=== PATIENT | male | born 1960 | race Caucasian/White ===

== ENCOUNTER 2017-10-11 15:32 | Emergency (ER) | payer BC ==
--- NOTE | 2017-10-11 15:59 | EDM.PDOC ---
ED HPI GENERAL MEDICAL PROBLEM - General Chief Complaint: Lower Extremity Injury/Pain Stated Complaint: LT LEG IS SWOLLEN Time Seen by Provider: 10/11/17 15:34 Source of Information: Reports: Patient History Limitations: Reports: No Limitations - History of Present Illness INITIAL COMMENTS - FREE TEXT/NARRATIVE: HISTORY AND PHYSICAL: History of present illness: Patient is a 57-year-old male who presents to the emergency room today with complaints of left lower extremity swelling and numbness/tingling. He states over the last 2 days he has had swelling to the left lower extremity does have intermittent numbness and tingling to his distal toes. He denies any recent travel or periods of inactivity. Denies any previous history of DVT or PE. Denies any fever, chills, chest pain, shortness of breath or cough. Denies any GI or symptoms. Denies any recent injury, trauma or falls. Review of systems: As per history of present illness and below otherwise all systems reviewed and negative. Past medical history: As per history of present illness and as reviewed below otherwise noncontributory. Surgical history: As per history of present illness and as reviewed below otherwise noncontributory. Social history: No reported history of drug or alcohol abuse. Family history: As per history of present illness and as reviewed below otherwise noncontributory. Physical exam: General: Developed and well-nourished 57-year-old male. Alert and oriented. Nontoxic appearing and in no acute distress. HEENT: Atraumatic, normocephalic, pupils equal and reactive bilaterally, negative for conjunctival pallor or scleral icterus, mucous membranes moist, throat clear, neck supple, nontender, trachea midline. No drooling or trismus noted. No meningeal signs Lungs: Clear to auscultation, breath sounds equal bilaterally, chest nontender. Heart: S1S2, regular rate and rhythm without overt murmur Abdomen: Soft, nondistended, nontender. Negative for masses or hepatosplenomegaly. Negative for costovertebral tenderness. Pelvis: Stable nontender. Genitourinary: Deferred. Rectal: Deferred. Skin: Intact, warm, dry. No erythema noted. No lesions or rashes noted. Extremities: Atraumatic, moves all extremities per self without difficulty or deficits, negative for cords or calf pain. + 1 pitting edema to the left ankle/ foot. Strong pedal pulses. Neurovascular unremarkable. Neuro: Awake, alert, oriented. Cranial nerves II through XII unremarkable. Cerebellum unremarkable. Motor and sensory unremarkable throughout. Exam nonfocal. Notes: Patient states he does have chronic back pain which does intermittently have him numbness and tingling to his distal extremities. She has never had unilateral numbness and tingling. He is agreeable to routine lab work and an ultrasound at this time. AST and ALT are elevated at this time. He does state he uses alcohol frequently to help with chronic pain. He is agreeable to following up with his primary care provider for further evaluation and management of this. He sees Dr. Torres at [facility]. No evidence of DVT in the left lower extremity. Diagnostics: CBC, CMP, troponin, chest x-ray, venous Doppler Therapeutics: [] Impression: Lower Extremity Edema, Left Plan: 1. Please limit your sodium intake (added salt, processed foods, etc...). 2. Ultrasound was normal, no evidence of DVT. Labs were normal with the exception of AST/ALT (liver enzymes); please follow up with your primary care provider for lab re-evaluation and further management of your lower extremity swelling. Return to the ED as needed as discussed. Definitive disposition and diagnosis as appropriate pending reevaluation and review of above. - Related Data Allergies Allergy/AdvReac Type Severity Reaction Status Date / Time No Known Allergies Allergy Verified 10/11/17 15:43 Home Meds: Home Meds Losartan/Hydrochlorothiazide [Losartan-HCTZ 50-12.5 MG] 1 each PO DAILY [History] Olmesartan [Benicar] 20 mg PO DAILY 10/11/17 [History] amLODIPine Besylate [Amlodipine Besylate] 10 mg PO DAILY 10/11/17 [History] Past Medical History - Past Health History Medical/Surgical History: Denies Medical/Surgical History Cardiovascular History: Reports: Hypertension Musculoskeletal History: Reports: Other (See Below) Other Musculoskeletal History: chronic right leg numbness/pain - Infectious Disease History Infectious Disease History: Reports: Chicken Pox - Past Surgical History Cardiovascular Surgical History: Reports: None Musculoskeletal Surgical History: Reports: Other (See Below) Social & Family History - Family History Family Medical History: Noncontributory HEENT: Reports: Glaucoma, Macular Degeneration Other HEENT Family History: mother Cardiac: Reports: High Cholesterol, Hypertension, [place] GI: Reports: Other (See Below) Other GI Family History: chrons Musculoskeletal: Reports: Back pain, Chronic Oncologic: Reports: Breast - Tobacco Use Smoking Status *Q: Current Every Day Smoker Years of Tobacco use: 40 Packs/Tins Daily: 1 - Recreational Drug Use Recreational Drug Use: No Review of Systems - Review of Systems Review Of Systems: ROS reveals no pertinent complaints other than HPI. ED EXAM, GENERAL - Physical Exam Exam: See Below (See dictation) Course - Vital Signs Last Recorded V/S: Last Vital Signs Temp 98.3 F 10/11/17 15:46 Pulse 108 H 10/11/17 15:46 Resp 18 10/11/17 15:46 BP 179/99 H 10/11/17 15:46 Pulse Ox 95 10/11/17 15:46 - Orders/Labs/Meds Orders: Active Orders 24 hr Category Date Time Status Chest 1V Frontal [CR] Stat Exams 10/11/17 15:59 Ordered Venous Doppler Lwr Ext Lt [US] Stat Exams 10/11/17 16:07 Taken Venous Doppler Lwr Ext Rt [US] Stat Exams 10/11/17 15:54 Stop Req Labs: Laboratory Tests 10/11/17 10/11/17 10/11/17 Range/Units 16:07 16:07 16:07 WBC 5.79 (4.0-11.0) K/uL RBC 4.46 L (4.50-5.90) M/uL Hgb 14.9 (13.0-17.0) g/dL Hct 42.9 (38.0-50.0) % MCV 96.2 (80.0-98.0) fL MCH 33.4 H (27.0-32.0) pg MCHC 34.7 (31.0-37.0) g/dL RDW Std Deviation 52.6 (28.0-62.0) fl RDW Coeff of Dorothy 15 (11.0-15.0) % Plt Count 169 (150-400) K/uL MPV 8.80 (7.40-12.00) fL Neut % (Auto) 70.7 (48.0-80.0) % Lymph % (Auto) 14.0 L (16.0-40.0) % [place] % (Auto) 13.8 (0.0-15.0) % Eos % (Auto) 1.0 (0.0-7.0) % Baso % (Auto) 0.5 (0.0-1.5) % Neut # (Auto) 4.1 (1.4-5.7) K/uL Lymph # (Auto) 0.8 (0.6-2.4) K/uL Schoolcraft # (Auto) 0.8 (0.0-0.8) K/uL Eos # (Auto) 0.1 (0.0-0.7) K/uL Baso # (Auto) 0.0 (0.0-0.1) K/uL Nucleated RBC % 0.0 /100WBC Nucleated RBCs # 0 K/uL Sodium 138 (136-148) mmol/L Potassium 3.8 (3.5-5.1) mmol/L Chloride 98 (98-107) mmol/L Carbon Dioxide 31.1 (21.0-32.0) mmol/L BUN 17 (7.0-18.0) mg/dL Creatinine 1.1 (0.8-1.3) mg/dL Est Cr Clr Drug Dosing 87.49 mL/min Estimated GFR (MDRD) > 60.0 ml/min Glucose 109 H (74-106) mg/dL Calcium 8.9 (8.5-10.1) mg/dL Total Bilirubin 0.3 (0.2-1.0) mg/dL AST 80 H (15-37) IU/L ALT 87 H (14-63) IU/L Alkaline Phosphatase 30 L (46-116) U/L Troponin I < 0.050 (0.000-0.056) ng/mL B-Natriuretic Peptide < 15 (<100) PG/ML Total Protein 7.1 (6.4-8.2) g/dL Albumin 4.1 (3.4-5.0) g/dL Globulin 3.0 (2.0-3.5) g/dL Albumin/Globulin Ratio 1.4 (1.3-2.8) Departure - Departure Time of Disposition: 16:54 Disposition: Home, Self-Care 01 Clinical Impression: Lower extremity edema - Discharge Information Referrals: PCP,None [Primary Care Provider] - Forms: ED Department Discharge Additional Instructions: The following information is given to patients seen in the emergency department who are being discharged to home. This information is to outline your options for follow-up care. We provide all patients seen in our emergency department with a follow-up referral. The need for follow-up, as well as the timing and circumstances, are variable depending upon the specifics of your emergency department visit. If you don't have a primary care physician on staff, we will provide you with a referral. We always advise you to contact your personal physician following an emergency department visit to inform them of the circumstance of the visit and for follow-up with them and/or the need for any referrals to a consulting specialist. The emergency department will also refer you to a specialist when appropriate. This referral assures that you have the opportunity for follow-up care with a specialist. All of these measure are taken in an effort to provide you with optimal care, which includes your follow-up. Under all circumstances we always encourage you to contact your private physician who remains a resource for coordinating your care. When calling for follow-up care, please make the office aware that this follow-up is from your recent emergency room visit. If for any reason you are refused follow-up, please contact the [facility] Emergency Department at and asked to speak to the emergency department charge nurse. [facility] [address] [place], [place] [id number] 1. Please limit your sodium intake (added salt, processed foods, etc...). 2. Ultrasound was normal, no evidence of DVT. Labs were normal with the exception of AST/ALT (liver enzymes); please follow up with your primary care provider for lab re-evaluation and further management of your lower extremity swelling. Return to the ED as needed as discussed. - My Orders Last 24 Hours: My Active Orders 10/11/17 15:54 Venous Doppler Lwr Ext Rt [US] Stat 10/11/17 15:59 Chest 1V Frontal [CR] Stat 10/11/17 16:07 Venous Doppler Lwr Ext Lt [US] Stat - Assessment/Plan Last 24 Hours: My Active Orders 10/11/17 15:54 Venous Doppler Lwr Ext Rt [US] Stat 10/11/17 15:59 Chest 1V Frontal [CR] Stat 10/11/17 16:07 Venous Doppler Lwr Ext Lt [US] Stat
[2017-10-11 16:41] LABS: CHLORIDE,CL 98 mmol/L (98-107); SODIUM,NA 138 mmol/L (136-148)
[2017-10-11 17:17] VITALS: BP 175/96
--- NOTE | 2017-10-12 10:44 | US ---
EXAM DATE: 10/11/17 PATIENT'S AGE: 57 Patient: CARLO MEDINA Facility: [place], [place] Site . Site : 1960 Study: US Extremity [id number]/25/2018 4:37:52 PM Ordering Physician: Doctor Torres Final Report: INDICATION: PAIN, SWELLING LLE LEFT LOWER EXTREMITY VENOUS DUPLEX ULTRASOUND TECHNIQUE: Duplex sonography using grayscale imaging as well as color and spectral Doppler interrogation was performed over the left lower extremity with attention to the deep venous system. FINDINGS: The left common femoral, femoral, deep femoral, popliteal, and posterior tibial veins show normal compressibility, color Doppler flow, and augmentation response. IMPRESSION: No evidence of deep venous thrombosis in the left lower extremity. ELIESER SWANSON MD [employer] Dictated by: Luis Swanson MD @ 10/11/2017 16:45:42 (Electronic Signature) Report Signed by Proxy. SPR[facility]
--- NOTE | 2017-10-12 10:45 | CR ---
EXAM DATE: 10/11/17 PATIENT'S AGE: 57 Patient: CARLO MEDINA Facility: [place], [place] Site . Site : 1960 Study: XRay Chest [id number]/25/2018 4:55:43 PM Ordering Physician: Doctor Torres Final Report: Indication: Tachycardia with left leg swelling Technique: Chest 1 view Comparison: October 30, 2015 Findings/Impression: Cardiovascular and mediastinum: Mild cardiomegaly, stable. Lungs and pleural space: Lungs are clear. No sign of infiltrate or mass. No sign of pleural effusion. No pneumothorax. Bones and soft tissues: No significant findings. Dictated by Eusebia Coronado MD @ Oct 11 2017 5:20PM (Electronic Signature) Report Signed by Proxy. [facility]
== END 2017-10-11 17:14 | disposition home or self-care (01) ==
LOC: MW.ED 15:32
DX: R60.0 Localized edema (principal); M79.662 Pain in left lower leg; I10 Essential (primary) hypertension; Z79.899 Other long term (current) drug therapy
CPT/HCPCS: 36415; 71045; 71045-26; 80053; 83880; 84484; 85025; 93971-26-LT; 93971-LT; 99283; 99284-25

== ENCOUNTER 2017-11-26 14:33 | Emergency (ER) | payer BC ==
--- NOTE | 2017-11-26 15:03 | EDM.PDOC ---
ED HPI GENERAL MEDICAL PROBLEM - General Chief Complaint: Back Pain or Injury Stated Complaint: BACK PAIN Time Seen by Provider: 11/26/17 14:37 Source of Information: Reports: Patient History Limitations: Reports: No Limitations - History of Present Illness INITIAL COMMENTS - FREE TEXT/NARRATIVE: HISTORY AND PHYSICAL: History of present illness: Patient is a 57-year-old male who presents to the emergency room today with complaints of chronic back pain. He states he has had ongoing back pain over the past 20 years. He states over the past 2 years this has required him to take medications and seek medical attention. He has had multiple x-rays, CT's and a MRI which confirms he has herniated discs in L4 and L5 and degenerative disc disease. He is currently waiting to see a neurosurgeon to have lumbar fusion, but has yet to receive a referral from his primary care provider. He does take prescribed and [id number] medications to help alleviate his discomfort which over the past several weeks has not helped. Reports he had fallen 2 weeks ago and believes this has "aggravated my back". He denies any urinary or fecal incontinence. Denies any weakness to his distal extremities. Denies any numbness or tingling to the distal extremities. Review of systems: As per history of present illness and below otherwise all systems reviewed and negative. Past medical history: As per history of present illness and as reviewed below otherwise noncontributory. Surgical history: As per history of present illness and as reviewed below otherwise noncontributory. Social history: No reported history of drug or alcohol abuse. Family history: As per history of present illness and as reviewed below otherwise noncontributory. Physical exam: General: Well altered well-nourished 57-year-old male. Alert and oriented. Nontoxic appearing and in no acute distress. HEENT: Atraumatic, normocephalic, pupils equal and reactive bilaterally, negative for conjunctival pallor or scleral icterus, mucous membranes moist, throat clear, neck supple, nontender, trachea midline. No drooling or trismus noted. No meningeal signs Lungs: Clear to auscultation, breath sounds equal bilaterally, chest nontender. Heart: S1S2, regular rate and rhythm without overt murmur Abdomen: Soft, nondistended, nontender. Negative for masses or hepatosplenomegaly. Negative for costovertebral tenderness. Pelvis: Stable nontender. Genitourinary: Deferred. Rectal: Deferred. Skin: Intact, warm, dry. No lesions or rashes noted. Extremities: Atraumatic, negative for cords or calf pain. Neurovascular unremarkable. C-spine/Back: No pinpoint vertebral tenderness upon palpation. No crepitus, step -offs or obvious deformities. Patient does have tenderness to the lumbar region to the paraspinous muscles. This does not radiate down either glute. Patient is ambulatory into the emergency room and able to walk on his heels and toes. No Urinary or fecal incontinence. Neuro: Awake, alert, oriented. Cranial nerves II through XII unremarkable. Cerebellum unremarkable. Motor and sensory unremarkable throughout. Exam nonfocal. Notes: Patient is tearful while explaining frustration of not having had a referral to the neurosurgeon. He states he is understanding that these pain medications are simply masking the root cause of his discomfort. He does request that we schedule him an appointment with a primary care provider at [facility] , which I will see if nursing staff is able to do so for him, as he states that no one will return his phone calls through Dr Salter's office. I will do a lumbar x-ray just to make sure there are no obvious fractures with the most recent fall. I am limited to what I can prescribe him for further pain management as he does have medications he is currently taking. X-ray shows no acute fractures or dislocations. This information was shared with the patient. Follow-up appointments have been made for the patient. Patient and voice understanding and are agreeable to plan of care. They deny any further questions or concerns at this time. Diagnostics: Lumbar Xray Therapeutics: Dilaudid IM Prescription: Lidoderm Patch PRN (Disp#10) Tramadol PRN (Disp #30) Impression: Back Pain, acute on chronic Plan: 1. Please avoid performing any activities that increase your pain. Gentle heat and/or ice intermittently to the painful area. 2. Please take your medications as directed. No driving while taking these medications as they may cause drowsiness. 3. Follow up with a primary care provider December 01, [address] Barnett (ER follow up) and Dr Franklin December 03, 2017 (for establishing care and Neurology Referral). Return to the ED as needed and as discussed. Definitive disposition and diagnosis as appropriate pending reevaluation and review of above. Lower Back Pain Score (Numeric/FACES): 12 - Related Data Allergies Allergy/AdvReac Type Severity Reaction Status Date / Time No Known Allergies Allergy Verified 11/26/17 15:04 Home Meds: Home Meds Losartan/Hydrochlorothiazide [Losartan-HCTZ 50-12.5 MG] 1 each PO DAILY [History] amLODIPine Besylate [Amlodipine Besylate] 10 mg PO DAILY 10/11/17 [History] Hydrocodone/Acetaminophen [Hydrocodon-Acetaminoph 7.5-325] 1 tab Q6HR PRN [History] Naproxen Sodium 1 tab BID PRN 11/26/17 [History] tiZANidine [Zanaflex] 2 tab Q8HR PRN 11/26/17 [History] Past Medical History - Past Health History Medical/Surgical History: Denies Medical/Surgical History Cardiovascular History: Reports: Hypertension Musculoskeletal History: Reports: Other (See Below) Other Musculoskeletal History: chronic right leg numbness/pain - Infectious Disease History Infectious Disease History: Reports: Chicken Pox - Past Surgical History Cardiovascular Surgical History: Reports: None Musculoskeletal Surgical History: Reports: Other (See Below) Social & Family History - Family History Family Medical History: Noncontributory HEENT: Reports: Glaucoma, Macular Degeneration Other HEENT Family History: mother Cardiac: Reports: High Cholesterol, Hypertension, [place] GI: Reports: Other (See Below) Other GI Family History: chrons Musculoskeletal: Reports: Back pain, Chronic Oncologic: Reports: Breast ED ROS GENERAL - Review of Systems Review Of Systems: ROS reveals no pertinent complaints other than HPI. ED EXAM,LOWER BACK PAIN/INJURY - Physical Exam Exam: See Below (See dictation) Course - Vital Signs Last Recorded V/S: Last Vital Signs Temp 97.7 F 11/26/17 14:59 Pulse 104 H 11/26/17 14:59 Resp 18 11/26/17 14:59 BP 146/88 H 11/26/17 14:59 Pulse Ox 96 11/26/17 14:59 - Orders/Labs/Meds Orders: Active Orders 24 hr Category Date Time Status Lumbar Spine 2 or 3V [CR] Stat Exams 11/26/17 15:15 Taken Meds: Medications Discontinued Medications Generic Name Dose Route Start Last Admin Trade Name Freq PRN Reason Stop Dose Admin Hydromorphone HCl 1 mg 11/26/17 15:16 11/26/17 15:43 Dilaudid IM 11/26/17 15:17 1 mg ONETIME ONE Administration Departure - Departure Time of Disposition: 15:38 Disposition: Home, Self-Care 01 Clinical Impression: Chronic back pain Qualifiers: Back pain location: low back pain Back pain laterality: bilateral Sciatica presence: without sciatica Qualified Code(s): M54.5 - Low back pain - Discharge Information Instructions: Chronic Back Pain Referrals: PCP,None [Primary Care Provider] - Forms: ED Department Discharge Additional Instructions: The following information is given to patients seen in the emergency department who are being discharged to home. This information is to outline your options for follow-up care. We provide all patients seen in our emergency department with a follow-up referral. The need for follow-up, as well as the timing and circumstances, are variable depending upon the specifics of your emergency department visit. If you don't have a primary care physician on staff, we will provide you with a referral. We always advise you to contact your personal physician following an emergency department visit to inform them of the circumstance of the visit and for follow-up with them and/or the need for any referrals to a consulting specialist. The emergency department will also refer you to a specialist when appropriate. This referral assures that you have the opportunity for follow-up care with a specialist. All of these measure are taken in an effort to provide you with optimal care, which includes your follow-up. Under all circumstances we always encourage you to contact your private physician who remains a resource for coordinating your care. When calling for follow-up care, please make the office aware that this follow-up is from your recent emergency room visit. If for any reason you are refused follow-up, please contact the [facility] Emergency Department at and asked to speak to the emergency department charge nurse. [facility] [address] [place] [id number] 1. Please avoid performing any activities that increase your pain. Gentle heat and/or ice intermittently to the painful area. 2. Please take your medications as directed. No driving while taking these medications as they may cause drowsiness. 3. Follow up on December 01, [address] Barnett (ER follow up) and Dr Franklin December 03, 2017 (for establishing care and Neurology Referral). Return to the ED as needed and as discussed. - My Orders Last 24 Hours: My Active Orders 11/26/17 15:15 Lumbar Spine 2 or 3V [CR] Stat - Assessment/Plan Last 24 Hours: My Active Orders 11/26/17 15:15 Lumbar Spine 2 or 3V [CR] Stat
[2017-11-26] MEDS ORDERED: HYDROmorphone 1 MG/ML Syringe IM ONE (15:16)
[2017-11-26 17:40] VITALS: BP 137/85
--- NOTE | 2017-11-29 14:43 | CR ---
EXAM DATE: 11/26/17 PATIENT'S AGE: 57 Patient: CARLO MEDINA Facility: [place], [place] Site . Site : 1960 Study: XRay Spine Lumbar [id number]/10/2018 4:01:25 PM Ordering Physician: Doctor Torres Final Report: INDICATION: PAIN COMPARISON: Lumbar spine series dated 08 July 2017. FINDINGS: Three views of the lumbar spine show minimal dextroconvex scoliotic changes of the lumbar spine. Multilevel marginal osteophyte formation. No evidence of acute fracture or dislocation. No other bony or soft tissue abnormalities identified. Dictated by Mina Elizabeth MD @ 11/26/2017 4:15:45 PM Dictated by: Mian Elizabeth MD @ 11/26/2017 16:15:55 (Electronic Signature) Report Signed by Proxy. [facility]
== END 2017-11-26 16:30 | disposition home or self-care (01) ==
LOC: MW.ED 14:33
DX: M54.5 Low back pain (principal); I10 Essential (primary) hypertension; Z79.899 Other long term (current) drug therapy
CPT/HCPCS: 72100; 96372; 99283; J1170

== ENCOUNTER 2018-08-31 14:24 | Emergency (ER) | payer SELFPAY ==
[2018-08-31] MEDS ORDERED: cefTRIAXone 1,000 MG in Lidocaine 1% 1 ML IM ONE (14:42)
--- NOTE | 2018-08-31 14:44 | EDM.PDOC ---
ED HPI GENERAL MEDICAL PROBLEM - General Chief Complaint: Skin Complaint Stated Complaint: CUT/SWOLLEN HAND Time Seen by Provider: 08/31/18 14:38 Source of Information: Reports: Patient History Limitations: Reports: No Limitations - History of Present Illness INITIAL COMMENTS - FREE TEXT/NARRATIVE: History of present illness: []Patient cut his hand with a knife while he was washing dishes in the sink 4 days ago. Last night patient's hand started swelling with erythema spreading up his forearm, he has not had any fevers. He started Bactrim today from his doctor 's office and has only taken one tablet. Review of systems: As per history of present illness and below otherwise all systems reviewed and negative. Past medical history: As per history of present illness and as reviewed below otherwise noncontributory. Surgical history: As per history of present illness and as reviewed below otherwise noncontributory. Social history: No reported history of drug or alcohol abuse. Family history: As per history of present illness and as reviewed below otherwise noncontributory. Physical exam: General: Well developed, well nourished in NAD HEENT: Atraumatic, normocephalic, pupils reactive, negative for conjunctival pallor or scleral icterus, mucous membranes moist, throat clear, neck supple, nontender, trachea midline. Lungs: Clear to auscultation, breath sounds equal bilaterally, chest nontender. Heart: S1S2, regular, negative for clicks, rubs, or JVD. Abdomen: NABS, Soft, nondistended, nontender. Negative for masses or hepatosplenomegaly. Negative for costovertebral tenderness. Pelvis: Stable nontender. Genitourinary: Deferred. Rectal: Deferred. Extremities: Laceration over the MCP index finger, she is able to move his fingers unattended range of motion with minimal pain, negative for cords or calf pain. Neurovascular unremarkable. Neuro: Awake, alert, oriented. Cranial nerves II through XII unremarkable. Cerebellum unremarkable. Motor and sensory unremarkable throughout. Exam nonfocal. Skin:warm and dry Diagnostics: None Therapeutics: Ceftriaxone IM ED Course: Stable Impression: Cellulitis right hand Prescriptions: Continue Bactrim Plan: Follow-up with PMD tomorrow or return to ER for wound check or return sooner if symptoms worsen. Definitive disposition and diagnosis as appropriate pending reevaluation and review of above. right hand Pain Score (Numeric/FACES): 7 - Related Data Allergies Allergy/AdvReac Type Severity Reaction Status Date / Time No Known Allergies Allergy Verified 03/18/18 20:11 Home Meds: Home Meds Dextroamphetamine/Amphetamine [Adderall 20 mg Tablet] 20 mg PO DAILY 03/18/18 [ History] Hydrocodone/Acetaminophen [Hydrocodon-Acetaminophn 10-325] 1 - 2 tab PO Q6H PRN 03/18/18 [History] Losartan/Hydrochlorothiazide [Losartan-HCTZ 100-12.5 MG] 1 each PO DAILY [History] amLODIPine Besylate [Amlodipine Besylate] 10 mg PO DAILY 03/18/18 [History] Past Medical History - Past Health History Medical/Surgical History: Denies Medical/Surgical History Cardiovascular History: Reports: Hypertension Respiratory History: Reports: None Gastrointestinal History: Reports: None Genitourinary History: Reports: None Musculoskeletal History: Reports: Other (See Below) Other Musculoskeletal History: chronic right leg numbness/pain Neurological History: Reports: None Psychiatric History: Reports: ADHD Endocrine/Metabolic History: Reports: None Hematologic History: Reports: None Immunologic History: Reports: None Oncologic (Cancer) History: Reports: None Dermatologic History: Reports: None - Infectious Disease History Infectious Disease History: Reports: Chicken Pox - Past Surgical History Head Surgeries/Procedures: Reports: None HEENT Surgical History: Reports: Tonsillectomy Cardiovascular Surgical History: Reports: None Musculoskeletal Surgical History: Reports: Other (See Below) Social & Family History - Family History Family Medical History: Noncontributory HEENT: Reports: Glaucoma, Macular Degeneration Other HEENT Family History: mother Cardiac: Reports: High Cholesterol, Hypertension, [place] GI: Reports: Other (See Below) Other GI Family History: chrons Musculoskeletal: Reports: Back pain, Chronic Oncologic: Reports: Breast - Tobacco Use Smoking Status *Q: Current Every Day Smoker Years of Tobacco use: 40 Packs/Tins Daily: 1 - Caffeine Use Caffeine Use: Reports: None - Recreational Drug Use Recreational Drug Use: No ED ROS GENERAL - Review of Systems Review Of Systems: ROS reveals no pertinent complaints other than HPI. ED EXAM, SKIN/RASH Exam: See Below (See history of present illness) Course - Vital Signs Last Recorded V/S: Last Vital Signs Temp 98.1 F 08/31/18 14:47 Pulse 102 H 08/31/18 14:47 Resp 16 08/31/18 14:47 BP 125/74 08/31/18 14:47 Pulse Ox 95 08/31/18 14:47 - Orders/Labs/Meds Meds: Medications Discontinued Medications Generic Name Dose Route Start Last Admin Trade Name Linda PRN Reason Stop Dose Admin Ceftriaxone Sodium 1,000 mg/ 1 mls @ 1 mls/sec 08/31/18 14:42 Lidocaine HCl IM 08/31/18 14:43 ONETIME ONE Departure - Departure Time of Disposition: 15:03 Disposition: Home, Self-Care 01 Condition: Good Clinical Impression: Cellulitis of right hand - Discharge Information *PRESCRIPTION DRUG MONITORING PROGRAM REVIEWED*: No *COPY OF PRESCRIPTION DRUG MONITORING REPORT IN PATIENT GLORIA: No Referrals: Syed Pantoja MD [Primary Care Provider] - Forms: ED Department Discharge Additional Instructions: The following information is given to patients seen in the emergency department who are being discharged to home. This information is to outline your options for follow-up care. We provide all patients seen in our emergency department with a follow-up referral. The need for follow-up, as well as the timing and circumstances, are variable depending upon the specifics of your emergency department visit. If you don't have a primary care physician on staff, we will provide you with a referral. We always advise you to contact your personal physician following an emergency department visit to inform them of the circumstance of the visit and for follow-up with them and/or the need for any referrals to a consulting specialist. The emergency department will also refer you to a specialist when appropriate. This referral assures that you have the opportunity for follow-up care with a specialist. All of these measure are taken in an effort to provide you with optimal care, which includes your follow-up. Under all circumstances we always encourage you to contact your private physician who remains a resource for coordinating your care. When calling for follow-up care, please make the office aware that this follow-up is from your recent emergency room visit. If for any reason you are refused follow-up, please contact the [facility] Emergency Department at and asked to speak to the emergency department charge nurse. Take meds as directed, follow up with your primary care physician, return to ER if symptoms worsen or change. Return to ER or follow up with primary care tomorrow for wound check or return sooner if symptoms worsen or change. You can also follow-up with hand surgery in [place], which he must call for an appointment first. [facility] [address] [place] [address] [place] [address] PH:[phone] fax:[phone]
[2018-08-31 14:48] VITALS: BP 125/74
== END 2018-08-31 15:36 | disposition home or self-care (01) ==
LOC: MW.ED 14:24
DX: L03.113 Cellulitis of right upper limb (principal); I10 Essential (primary) hypertension; F17.210 Nicotine dependence, cigarettes, uncomplicated; Z79.899 Other long term (current) drug therapy
CPT/HCPCS: 96372; 99283; J0696; J2001; 99282

== ENCOUNTER 2019-10-26 15:14 | Emergency (ER) | payer BC ==
[2019-10-26] MEDS ORDERED: Dexamethasone 4 MG Tab PO ONE (15:53)
--- NOTE | 2019-10-26 15:58 | EDM.PDOC ---
ED HPI GENERAL MEDICAL PROBLEM - General Chief Complaint: ENT Problem Stated Complaint: PAIN IN ESOPHAGUS Time Seen by Provider: 10/26/19 15:41 - History of Present Illness INITIAL COMMENTS - FREE TEXT/NARRATIVE: History of present illness: Patient presents with anterior left throat pain when swallowing for the past 2 days he denies any feeling of globus there is been no fever no chills no sore throat type sensations he has not been coughing or running fevers he denies eating anything that would have bones in it especially no fish recently. He states it only hurts as a sharp pain when he swallows when he is not swallowing it does not hurt. It is worse in the mornings and gets better as the evening goes on. Symptoms no other concerns Review of systems: As per history of present illness and below otherwise all systems reviewed and negative. Past medical history: As per history of present illness and as reviewed below otherwise noncontributory. Surgical history: As per history of present illness and as reviewed below otherwise noncontributory. Social history: No reported history of drug or alcohol abuse. Family history: As per history of present illness and as reviewed below otherwise noncontributory. Physical exam: HEENT: Atraumatic, normocephalic, pupils reactive, negative for conjunctival pallor or scleral icterus, mucous membranes moist, throat clear, neck supple, nontender, trachea midline. There is no pharyngeal asymmetry there is no anterior adenopathy the anterior throat is not tender. No crepitance Lungs: Clear to auscultation, breath sounds equal bilaterally, chest nontender. Heart: S1S2, regular, negative for clicks, rubs, or JVD. Abdomen: Soft, nondistended, nontender. Negative for masses or hepatosplenomegaly. Negative for costovertebral tenderness. Pelvis: Stable nontender. Genitourinary: Deferred. Rectal: Deferred. Extremities: Atraumatic, negative for cords or calf pain. Neurovascular unremarkable. Neuro: Awake, alert, oriented. Cranial nerves II through XII unremarkable. Cerebellum unremarkable. Motor and sensory unremarkable throughout. Exam nonfocal. Diagnostics: [] Therapeutics: [] Impression: Throat pain with swallowing [] Plan: Decadron follow-up with regular doctor Wednesday as scheduled return to the ED in the meantime if you are having trouble breathing or swallowing. [] Definitive disposition and diagnosis as appropriate pending reevaluation and review of above. throat Pain Score (Numeric/FACES): 5 - Related Data Allergies Allergy/AdvReac Type Severity Reaction Status Date / Time No Known Allergies Allergy Verified 10/26/19 15:39 Home Meds: Home Meds Dextroamphetamine/Amphetamine [Adderall 20 mg Tablet] 20 mg PO DAILY 03/18/18 [History] Hydrocodone/Acetaminophen [Hydrocodone-Acetamin 10-325 mg] 1 - 2 tab PO Q6H PRN 03/18/18 [History] Losartan/Hydrochlorothiazide [Losartan-HCTZ 100-12.5 MG] 1 each PO DAILY 03/18/18 [History] amLODIPine Besylate [Amlodipine Besylate] 10 mg PO DAILY 03/18/18 [History] predniSONE 60 mg PO WITHBREAKFAST 5 Days #15 tab 10/26/19 [Rx] Past Medical History - Past Health History Medical/Surgical History: Denies Medical/Surgical History HEENT History: Reports: None Cardiovascular History: Reports: Hypertension Respiratory History: Reports: None Gastrointestinal History: Reports: None Genitourinary History: Reports: None Musculoskeletal History: Reports: Other (See Below) Other Musculoskeletal History: chronic right leg numbness/pain Neurological History: Reports: None Psychiatric History: Reports: ADHD Endocrine/Metabolic History: Reports: None Hematologic History: Reports: None Immunologic History: Reports: None Oncologic (Cancer) History: Reports: None Dermatologic History: Reports: None - Infectious Disease History Infectious Disease History: Reports: None - Past Surgical History Head Surgeries/Procedures: Reports: None HEENT Surgical History: Reports: Tonsillectomy Cardiovascular Surgical History: Reports: None Respiratory Surgical History: Reports: None GI Surgical History: Reports: None Male Surgical History: Reports: None Endocrine Surgical History: Reports: None Neurological Surgical History: Reports: None Musculoskeletal Surgical History: Reports: Shoulder Replacement, Shoulder Surgery, Other (See Below) Oncologic Surgical History: Reports: None Dermatological Surgical History: Reports: None Social & Family History - Family History Family Medical History: Noncontributory HEENT: Reports: Glaucoma, Macular Degeneration Other HEENT Family History: mother Cardiac: Reports: High Cholesterol, Hypertension, [place] GI: Reports: Other (See Below) Other GI Family History: chrons Musculoskeletal: Reports: Back pain, Chronic Oncologic: Reports: Breast - Tobacco Use Smoking Status *Q: Never Smoker Second Hand Smoke Exposure: No - Caffeine Use Caffeine Use: Reports: Energy Drinks - Recreational Drug Use Recreational Drug Use: Yes Recreational Drug Type: Reports: Marijuana/Hashish ED ROS GENERAL - Review of Systems Review Of Systems: See Below ED EXAM, GENERAL - Physical Exam Exam: See Below Course - Vital Signs Text/Narrative:: There is no evidence of infection foreign body or other dangerous airways compromise. I will treat the patient with some Decadron for comfort. I offered the patient some imaging versus expectant treatment he would rather follow-up with his regular doctor as scheduled on Wednesday he is to return to the ED if he worsens especially trouble swallowing or breathing. Last Recorded V/S: Last Vital Signs Temp 35.7 C L 10/26/19 15:40 Pulse 96 10/26/19 15:40 Resp 18 10/26/19 15:40 BP 146/81 H 10/26/19 15:40 Pulse Ox 95 10/26/19 15:40 - Orders/Labs/Meds Orders: Active Orders 24 hr Category Date Time Status dexAMETHasone Med 10/26/19 15:53 Once 8 mg PO ONETIME ONE Departure - Departure Time of Disposition: 15:56 Disposition: Home, Self-Care 01 Condition: Good Clinical Impression: Throat pain, Pharyngitis - Discharge Information *PRESCRIPTION DRUG MONITORING PROGRAM REVIEWED*: Not Applicable *COPY OF PRESCRIPTION DRUG MONITORING REPORT IN PATIENT GLORIA: Not Applicable Instructions: Sore Throat, [id number] Referrals: Syed Pantoja MD [Primary Care Provider] - Additional Instructions: The following information is given to patients seen in the emergency department who are being discharged to home. This information is to outline your options for follow-up care. We provide all patients seen in our emergency department with a follow-up referral. The need for follow-up, as well as the timing and circumstances, are variable depending upon the specifics of your emergency department visit. If you don't have a primary care physician on staff, we will provide you with a referral. We always advise you to contact your personal physician following an emergency department visit to inform them of the circumstance of the visit and for follow-up with them and/or the need for any referrals to a consulting specialist. The emergency department will also refer you to a specialist when appropriate. This referral assures that you have the opportunity for follow-up care with a specialist. All of these measure are taken in an effort to provide you with optimal care, which includes your follow-up. Under all circumstances we always encourage you to contact your private physician who remains a resource for coordinating your care. When calling for follow-up care, please make the office aware that this follow-up is from your recent emergency room visit. If for any reason you are refused follow-up, please contact the [facility] Emergency Department at and asked to speak to the emergency department charge nurse. Sepsis Event Note (ED) - Evaluation Sepsis Screening Result: No Definite Risk - Focused Exam Vital Signs: Vital Signs Temp Pulse Resp BP Pulse Ox 10/26/19 15:40 35.7 C L 96 18 146/81 H 95 - My Orders Last 24 Hours: My Active Orders 10/26/19 15:53 dexAMETHasone 8 mg PO ONETIME ONE - Assessment/Plan Last 24 Hours: My Active Orders 10/26/19 15:53 dexAMETHasone 8 mg PO ONETIME ONE
[2019-10-26 16:14] VITALS: BP 137/84; PULSE 90
== END 2019-10-26 16:16 | disposition home or self-care (01) ==
LOC: MW.ED 15:14
DX: J02.9 Acute pharyngitis, unspecified (principal); I10 Essential (primary) hypertension; Z79.899 Other long term (current) drug therapy
CPT/HCPCS: 99283; J8540; 99282

== ENCOUNTER 2020-04-13 16:01 | Emergency (ER) | payer BC, MEDICAID ==
--- NOTE | 2020-04-13 17:25 | EDM.PDOC ---
ED HPI GENERAL MEDICAL PROBLEM - General Chief Complaint: Fever Stated Complaint: fever/lethargic/cough Time Seen by Provider: 04/13/20 16:46 Source of Information: Reports: Patient History Limitations: Reports: No Limitations - History of Present Illness INITIAL COMMENTS - FREE TEXT/NARRATIVE: HISTORY AND PHYSICAL: History of present illness: Patient is a 60-year-old male who presents to the emergency room with complaints of subjective fever, chills, dry nonproductive cough and feeling like he has had no energy over the past 2 days. He states he is concerned he may have COVID-19 and wanted to be evaluated as his is immunocompromised. He continues to eat and drink appropriately. Patient denies any headache, sore throat, ear pain, change in vision, syncope or near syncope. Denies any chest pain, back pain, or shortness of breath. Denies any abdominal pain, nausea, vomiting, diarrhea, constipation or dysuria. Has not noted any blood in urine or stool. Patient has been eating and drinking appropriately. Review of systems: As per history of present illness and below otherwise all systems reviewed and negative. Past medical history: As per history of present illness and as reviewed below otherwise noncontributory. Surgical history: As per history of present illness and as reviewed below otherwise noncontributory. Social history: See social history for further information Family history: As per history of present illness and as reviewed below otherwise noncontributory. Physical exam: General: Well developed and well nourished. Alert and orientated x 3. Nontoxic in appearance and in no acute distress. Vital signs are stable and have been reviewed by me. Nursing notes were reviewed. HEENT: Atraumatic, normocephalic, pupils equal and reactive bilaterally, negative for conjunctival pallor or scleral icterus, mucous membranes moist, TMs normal bilaterally, throat clear, neck supple, nontender, trachea midline. No drooling or trismus noted. No meningeal signs. No hot potato voice noted. Lungs: Clear to auscultation, breath sounds equal bilaterally, chest nontender. Normal work of breathing, no accessory muscles used. Dry nonproductive cough is noted. Heart: S1S2, regular rate and rhythm without overt murmur Abdomen: Soft, nondistended, nontender. Skin: Intact, warm, dry. No lesions or rashes noted. Hematologic: No petechiae or purpra. Mucosa appropriate color and normal nail bed color and refill. Extremities: Atraumatic, moves all extremities per self without difficulty or deficits, negative for cords or calf pain. Neurovascular unremarkable. Neuro: Awake, alert, oriented. Cranial nerves II through XII unremarkable. Cerebellum unremarkable. Motor and sensory unremarkable throughout. Exam nonfocal. Psychiatric: Mood and affect are appropriate. Normal thought process. Answering questions appropriately. Notes: Patient does have a dry nonproductive cough although his lung sounds are clear and his oxygen saturation is within normal limits. He states he does have a history of asthma, I will put him on azithromycin. His Covid and influenza screening are negative. I have talked with the patient about today's findings, in addition to providing specific details for plan of care. Reassessment at the time of disposition demonstrates that the patient is in no acute distress. The patient is stable for discharge, counseling was provided and we discussed in great detail signs and symptoms that would prompt them to return to the Emergency Department. Medication, follow up and supportive care measures were reviewed and discussed. Voices understanding and is agreeable to plan of care. Denies any further questions or concerns at this time. Diagnostics: COVID-19/influenza Therapeutics: None Prescription: Azithromycin Impression: Bronchitis Plan: 1. Your COVID-19 screening is negative. If you are not in close contact to someone who is positive, you should continue to practice physical distancing and limit your interactions with others as much as possible. You may attend work and attend/perform essential activities if you are not sick. If you continue to feel unwell please stay home. 2. COVID-19 testing is not 100% accurate, so if you have symptoms that continue that lead you to believe you have COVID, you can get re-tested in a few days at our respiratory clinic. 3. You can take NyQuil during the evening to help get a restful night sleep. Alternate Tylenol and ibuprofen as needed for pain and fever management. 4. The [place] COVID 19 Hotline phone number , They are open Wednesday - Wednesday 7am - 7pm. 5. Follow up with your primary care provider for re-evaluation and if your symptoms should worsen, new symptoms develop or you feel like you are not improving you are always welcome to return to the emergency room. Definitive disposition and diagnosis as appropriate pending reevaluation and review of above. - Related Data Allergies Allergy/AdvReac Type Severity Reaction Status Date / Time No Known Allergies Allergy Verified 04/13/20 16:47 Home Meds: Home Meds Dextroamphetamine/Amphetamine [Adderall 20 mg Tablet] 20 mg PO DAILY 03/18/18 [History] Hydrocodone/Acetaminophen [Hydrocodone-Acetamin 10-325 mg] 1 - 2 tab PO Q6H PRN 03/18/18 [History] Losartan/Hydrochlorothiazide [Losartan-HCTZ 100-12.5 MG] 1 each PO DAILY 03/18/18 [History] Azithromycin [Zithromax] 1 dose PO DAILY 5 Days #6 tab 04/13/20 [Rx] Past Medical History - Past Health History Medical/Surgical History: Denies Medical/Surgical History HEENT History: Reports: Impaired Vision Cardiovascular History: Reports: Hypertension Respiratory History: Reports: None Gastrointestinal History: Reports: None Genitourinary History: Reports: None Musculoskeletal History: Reports: Other (See Below) Other Musculoskeletal History: chronic right leg numbness/pain Neurological History: Reports: None Psychiatric History: Reports: ADHD Endocrine/Metabolic History: Reports: None Hematologic History: Reports: None Immunologic History: Reports: None Oncologic (Cancer) History: Reports: None Dermatologic History: Reports: None - Infectious Disease History Infectious Disease History: Reports: None - Past Surgical History Head Surgeries/Procedures: Reports: None HEENT Surgical History: Reports: Tonsillectomy Cardiovascular Surgical History: Reports: None Respiratory Surgical History: Reports: None GI Surgical History: Reports: None Male Surgical History: Reports: None Endocrine Surgical History: Reports: None Neurological Surgical History: Reports: None Musculoskeletal Surgical History: Reports: Shoulder Replacement, Shoulder Surger y, Other (See Below) Other Musculoskeletal Surgeries/Procedures:: back surgery 18 years ago, back surgery 6 weeks ago, left and right shoulder surgeries 2017 and 2018 Oncologic Surgical History: Reports: None Dermatological Surgical History: Reports: None Social & Family History - Family History Family Medical History: No Pertinent Family History HEENT: Reports: Glaucoma, Macular Degeneration Other HEENT Family History: mother Cardiac: Reports: High Cholesterol, Hypertension, [place] GI: Reports: Other (See Below) Other GI Family History: chrons Musculoskeletal: Reports: Back pain, Chronic Oncologic: Reports: Breast - Tobacco Use Tobacco Use Status *Q: Never Tobacco User Second Hand Smoke Exposure: No - Caffeine Use Caffeine Use: Reports: None - Alcohol Use Days Per Week of Alcohol Use: 7 Number of Drinks Per Day: 2 Total Drinks Per Week: 14 - Recreational Drug Use Recreational Drug Use: Yes Recreational Drug Type: Reports: Marijuana/Hashish Recreational Drug Use Frequency: Daily ED ROS GENERAL - Review of Systems Review Of Systems: Comprehensive ROS is negative, except as noted in HPI. ED EXAM, GENERAL - Physical Exam Exam: See Below (See dictation) Course - Vital Signs Last Recorded V/S: Last Vital Signs Temp 96.7 F L 04/13/20 16:34 Pulse 76 04/13/20 17:46 Resp 16 04/13/20 17:46 BP 149/83 H 04/13/20 17:46 Pulse Ox 95 04/13/20 17:46 - Orders/Labs/Meds Labs: Laboratory Tests 04/13/20 04/13/20 04/13/20 Range/Units 17:02 17:02 17:25 WBC 10.14 (4.0-11.0) K/uL RBC 4.65 (4.50-5.90) M/uL Hgb 15.4 (13.0-17.0) g/dL Hct 45.6 (38.0-50.0) % MCV 98.1 H (80.0-98.0) fL MCH 33.1 H (27.0-32.0) pg MCHC 33.8 (31.0-37.0) g/dL RDW Std Deviation 51.1 (28.0-62.0) fl RDW Coeff of Dorothy 14 (11.0-15.0) % Plt Count 207 (150-400) K/uL MPV 9.10 (7.40-12.00) fL Neut % (Auto) 79.0 (48.0-80.0) % Lymph % (Auto) 11.8 L (16.0-40.0) % Mineral % (Auto) 8.1 (0.0-15.0) % Eos % (Auto) 0.7 (0.0-7.0) % Baso % (Auto) 0.4 (0.0-1.5) % Neut # (Auto) 8.0 H (1.4-5.7) K/uL Lymph # (Auto) 1.2 (0.6-2.4) K/uL Mineral # (Auto) 0.8 (0.0-0.8) K/uL Eos # (Auto) 0.1 (0.0-0.7) K/uL Baso # (Auto) 0.0 (0.0-0.1) K/uL Nucleated RBC % 0.0 /100WBC Nucleated RBCs # 0 K/uL Sodium 137 (136-148) mmol/L Potassium 3.8 (3.5-5.1) mmol/L Chloride 98 (98-107) mmol/L Carbon Dioxide 29.3 (21.0-32.0) mmol/L BUN 13 (7.0-18.0) mg/dL Creatinine 1.0 (0.8-1.3) mg/dL Est Cr Clr Drug Dosing 92.72 mL/min Estimated GFR (MDRD) > 60.0 ml/min Glucose 85 (74-106) mg/dL Calcium 9.0 (8.5-10.1) mg/dL Total Bilirubin 0.9 (0.2-1.0) mg/dL AST 49 H (15-37) IU/L ALT 46 (14-63) IU/L Alkaline Phosphatase 33 L (46-116) U/L Total Protein 6.8 (6.4-8.2) g/dL Albumin 3.9 (3.4-5.0) g/dL Globulin 2.9 (2.6-4.0) g/dL Albumin/Globulin Ratio 1.3 (0.9-1.6) Influenza Type A RNA NEGATIVE (NEGATIVE) Influenza Type B RNA NEGATIVE (NEGATIVE) SARS-CoV-2 RNA (SHAHAB) NEGATIVE (NEGATIVE) Departure - Departure Time of Disposition: 18:16 Disposition: Home, Self-Care 01 Clinical Impression: Bronchitis - Discharge Information Prescriptions: Azithromycin [Zithromax] 1 dose PO DAILY 5 Days #6 tab Instructions: Upper Respiratory Infection, Adult, [id number] Referrals: Syed Pantoja MD [Primary Care Provider] - Forms: ED Department Discharge Additional Instructions: The following information is given to patients seen in the emergency department who are being discharged to home. This information is to outline your options for follow-up care. We provide all patients seen in our emergency department with a follow-up referral. The need for follow-up, as well as the timing and circumstances, are variable depending upon the specifics of your emergency department visit. If you don't have a primary care physician on staff, we will provide you with a referral. We always advise you to contact your personal physician following an emergency department visit to inform them of the circumstance of the visit and for follow-up with them and/or the need for any referrals to a consulting specialist. The emergency department will also refer you to a specialist when appropriate. This referral assures that you have the opportunity for follow-up care with a specialist. All of these measure are taken in an effort to provide you with optimal care, which includes your follow-up. Under all circumstances we always encourage you to contact your private physician who remains a resource for coordinating your care. When calling for follow-up care, please make the office aware that this follow-up is from your recent emergency room visit. If for any reason you are refused follow-up, please contact the Emergency Department at and asked to speak to the emergency department charge nurse. Primary Care [address] [place] [address] [id number] [address] [address] Thank you for choosing the [facility] emergency department in [place] for your medical needs today. It was a pleasure caring for you. Today you were seen in the emergency department for COVID symptoms. 1. Your COVID-19 screening is negative. If you are not in close contact to someone who is positive, you should continue to practice physical distancing and limit your interactions with others as much as possible. You may attend work and attend/perform essential activities if you are not sick. If you continue to feel unwell please stay home. 2. COVID-19 testing is not 100% accurate, so if you have symptoms that continue that lead you to believe you have COVID, you can get re-tested in a few days at our respiratory clinic. 3. You can take NyQuil during the evening to help get a restful night sleep. Alternate Tylenol and ibuprofen as needed for pain and fever management. 4. The [employer] [facility] Hotline phone number , They are open Wednesday - Wednesday 7am - 7pm. 5. Follow up with your primary care provider for re-evaluation and if your symptoms should worsen, new symptoms develop or you feel like you are not improving you are always welcome to return to the emergency room. Sepsis Event Note (ED) - Evaluation Sepsis Screening Result: No Definite Risk - Focused Exam Vital Signs: Vital Signs Temp Pulse Resp BP Pulse Ox 04/13/20 17:46 76 16 149/83 H 95 04/13/20 16:34 96.7 F L 92 18 140/93 H 93 L
[2020-04-13 17:31] LABS: BLOOD UREA NITROGEN,BUN 13 mg/dL (7.0-18.0); CARBON DIOXIDE,CO2 29.3 mmol/L (21.0-32.0); CHLORIDE,CL 98 mmol/L (98-107); GLUCOSE RANDOM 85 mg/dL (74-106); POTASSIUM,K 3.8 mmol/L (3.5-5.1); SODIUM,NA 137 mmol/L (136-148)
[2020-04-13 17:46] VITALS: BP 149/83; PULSE 76
[2020-04-13 18:07] LABS: CORONAVIRUS COVID-19 NAA NEGATIVE (NEGATIVE); INFLUENZA A NAA NEGATIVE (NEGATIVE); INFLUENZA B NAA NEGATIVE (NEGATIVE)
== END 2020-04-13 18:40 | disposition home or self-care (01) ==
LOC: MW.ED 16:01
DX: J40 Bronchitis, not specified as acute or chronic (principal); I10 Essential (primary) hypertension; F90.9 Attention-deficit hyperactivity disorder, unspecified type; Z20.828 Contact with and (suspected) exposure to other viral communicable diseases; Z79.899 Other long term (current) drug therapy
CPT/HCPCS: 0240U; 36415; 80053; 85025; 99283

== ENCOUNTER 2020-10-03 13:58 | Emergency (ER) | payer MEDICAID ==
[2020-10-03] MEDS ORDERED: Bacitracin Oint 1 GM U/D Packet TOP ONE (14:31)
--- NOTE | 2020-10-03 14:31 | EDM.PDOC ---
ED HPI GENERAL MEDICAL PROBLEM - General Chief Complaint: Laceration Stated Complaint: CUT RT ARM Time Seen by Provider: 10/03/20 14:27 Source of Information: Reports: Patient History Limitations: Reports: No Limitations - History of Present Illness INITIAL COMMENTS - FREE TEXT/NARRATIVE: HISTORY AND PHYSICAL: History of present illness: Patient is a 60-year-old male that is brought to the emergency room with complaints of a laceration to his distal right bicep. States he was washing his truck and had caught his inner arm on a toolbox corner resulting in the laceration. He denies any other bodily injury. He offers no systemic complaints. His tetanus has been updated less than 3 years ago. Review of systems: As per history of present illness and below otherwise all systems reviewed and negative. Past medical history: As per history of present illness and as reviewed below otherwise noncontributory. Surgical history: As per history of present illness and as reviewed below otherwise noncontributory. Social history: See social history for further information Family history: As per history of present illness and as reviewed below otherwise noncontributo ry. Physical exam: General: Well developed and well nourished. Alert and orientated x 3. Nontoxic in appearance and in no acute distress. Vital signs are stable and have been reviewed by me. Nursing notes were reviewed. HEENT: Atraumatic, normocephalic, pupils equal and reactive bilaterally, negative for conjunctival pallor or scleral icterus, mucous membranes moist, TMs normal bilaterally, throat clear, neck supple, nontender, trachea midline. No drooling or trismus noted. No meningeal signs. No hot potato voice noted. Lungs: Clear to auscultation bilaterally. Skin: 5 cm laceration to the right inner bicep region just above the antecubital space. Remaining skin is intact, warm, dry. No lesions or rashes noted. Hematologic: No petechiae or purpra. Mucosa appropriate color and normal nail bed color and refill. Extremities: See skin for details, moves all extremities per self without difficulty or deficits, negative for cords or calf pain. Neurovascular unremarkable. Neuro: Awake, alert, oriented. Cranial nerves II through XII unremarkable. Cerebellum unremarkable. Motor and sensory unremarkable throughout. Exam nonfocal. Psychiatric: Mood and affect are appropriate. Normal thought process. Answering questions appropriately. Notes: *This patient was seen and evaluated during the 2019 SARS-CoV-2 novel coronavirus pandemic period. Community viral transmission is ongoing at time of this encounter and the emergency department is operating under pandemic response procedures. 1% lidocaine was used to anesthetize the area. Usual and customary procedures were followed for suture placement. 4-0 nylon, # 4 interrupted sutures were placed. Patient tolerated well. Bacitracin nonstick dressing was applied. Tetanus is current. I have talked with the patient about today's findings, in addition to providing specific details for plan of care. Reassessment at the time of disposition demonstrates that the patient is in no acute distress. The patient is stable for discharge, counseling was provided and we discussed in great detail signs and symptoms that would prompt them to return to the Emergency Department. Medication, follow up and supportive care measures were r eviewed and discussed. Voices understanding and is agreeable to plan of care. Denies any further questions or concerns at this time. Diagnostics: None Therapeutics: Lidocaine, bacitracin Prescription: None Impression: Laceration Plan: 1. Keep the area clean and dry. Continue to monitor for signs of infection. Sutures to be removed in 7-10 days. 2. Tylenol and/or ibuprofen as needed for pain management. 3. Please follow-up with your primary care provider in the next 1-2 days. If your symptoms should worsen, new symptoms develop or any of the signs and symptoms we discussed should arise please return to the emergency room or call 911 (if needed). Definitive disposition and diagnosis as appropriate pending reevaluation and review of above. right forearm Pain Score (Numeric/FACES): 4 - Related Data Allergies Allergy/AdvReac Type Severity Reaction Status Date / Time No Known Allergies Allergy Verified 10/03/20 14:23 Home Meds: Home Meds Dextroamphetamine/Amphetamine [Adderall 20 mg Tablet] 20 mg PO DAILY 03/18/18 [History] Hydrocodone/Acetaminophen [Hydrocodone-Acetamin 10-325 mg] 1 - 2 tab PO Q6H PRN 03/18/18 [History] Losartan/Hydrochlorothiazide [Losartan-HCTZ 100-12.5 MG] 1 each PO DAILY 03/18/18 [History] Non-Formulary Medication [NF Drug] 1 each INH ASDIRECTED 10/03/20 [History] Past Medical History - Past Health History Medical/Surgical History: Denies Medical/Surgical History HEENT History: Reports: Impaired Vision Cardiovascular History: Reports: Hypertension Respiratory History: Reports: None Gastrointestinal History: Reports: None Genitourinary History: Reports: None Musculoskeletal History: Reports: Other (See Below) Other Musculoskeletal History: chronic right leg numbness/pain Neurological History: Reports: None Psychiatric History: Reports: ADHD Endocrine/Metabolic History: Reports: None Hematologic History: Reports: None Immunologic History: Reports: None Oncologic (Cancer) History: Reports: None Dermatologic History: Reports: None - Infectious Disease History Infectious Disease History: Reports: Chicken Pox, Mumps - Past Surgical History Head Surgeries/Procedures: Reports: None HEENT Surgical History: Reports: Tonsillectomy Cardiovascular Surgical History: Reports: None Respiratory Surgical History: Reports: None GI Surgical History: Reports: None Male Surgical History: Reports: None Endocrine Surgical History: Reports: None Neurological Surgical History: Reports: None Musculoskeletal Surgical History: Reports: Shoulder Replacement, Shoulder Surgery, Other (See Below) Other Musculoskeletal Surgeries/Procedures:: back surgery 18 years ago, back surgery 6 weeks ago, left and right shoulder surgeries 2017 and 2018 Oncologic Surgical History: Reports: None Dermatological Surgical History: Reports: None Social & Family History - Family History Family Medical History: No Pertinent Family History HEENT: Reports: Glaucoma, Macular Degeneration Other HEENT Family History: mother Cardiac: Reports: High Cholesterol, Hypertension, [place] GI: Reports: Other (See Below) Other GI Family History: chrons Musculoskeletal: Reports: Back pain, Chronic Oncologic: Reports: Breast - Caffeine Use Caffeine Use: Reports: None - Recreational Drug Use Recreational Drug Use: No ED ROS GENERAL - Review of Systems Review Of Systems: Comprehensive ROS is negative, except as noted in HPI. ED EXAM, SKIN/RASH Exam: See Below (See dictation) ED SKIN PROCEDURES - Laceration/Wound Repair Right arm Appearance: Subcutaneous, Linear, Clean Distal NVT: Neuro & Vascular Intact, No Tendon Injury Anesthetic Type: Local Local Anesthesia - Lidocaine (Xylocaine): 1% Plain Local Anesthetic Volume: 4cc Skin Prep: Chlorhexidine (Hibiciens), Saline, Sterile Drape Saline Irrigation (cc's): 250 Exploration/Debridement/Repair: Wound Explored, In a Bloodless Field, Explored to Base, No Foreign Material Found Closed with: Sutures Lac/Wound length In cm: 5 Suture Size: 4-0 # of Sutures: 4 Suture Type: Nylon, Interrupted, Simple Drain Placement: No Sterile Dressing Applied: Provider Tetanus Status Addressed: Yes Complications: No Course - Vital Signs Last Recorded V/S: Last Vital Signs Temp 98.3 F 10/03/20 14:24 Pulse 102 H 10/03/20 14:24 Resp 18 10/03/20 14:24 BP 123/70 10/03/20 14:31 Pulse Ox 97 10/03/20 14:24 - Orders/Labs/Meds Meds: Medications Discontinued Medications Generic Name Dose Route Start Last Admin Trade Name Linda PRN Reason Stop Dose Admin Bacitracin 1 dose 10/03/20 14:31 10/03/20 14:34 Bacitracin Oint 1 Gm U/D Packet TOP 10/03/20 14:32 1 dose ONETIME ONE Administration Lidocaine HCl 5 ml 10/03/20 14:30 10/03/20 14:33 Lidocaine 1% 5 Ml Sdv INJECT 10/03/20 14:31 5 ml ONETIME ONE Administration Departure - Departure Time of Disposition: 15:27 Disposition: Home, Self-Care 01 Clinical Impression: Laceration - Discharge Information Instructions: Laceration Care, Adult, [id number] Referrals: Rihcard Acosta MD [Primary Care Provider] - Forms: ED Department Discharge Additional Instructions: The following information is given to patients seen in the emergency department who are being discharged to home. This information is to outline your options for follow-up care. We provide all patients seen in our emergency department wit h a follow-up referral. The need for follow-up, as well as the timing and circumstances, are variable depending upon the specifics of your emergency department visit. If you don't have a primary care physician on staff, we will provide you with a referral. We always advise you to contact your personal physician following an emergency department visit to inform them of the circumstance of the visit and for follow-up with them and/or the need for any referrals to a consulting specialist. The emergency department will also refer you to a specialist when appropriate. This referral assures that you have the opportunity for follow-up care with a specialist. All of these measure are taken in an effort to provide you with optimal care, which includes your follow-up. Under all circumstances we always encourage you to contact your private physician who remains a resource for coordinating your care. When calling for follow-up care, please make the office aware that this follow-up is from your recent emergency room visit. If for any reason you are refused follow-up, please contact the [facility] Emergency Department at and asked to speak to the emergency department charge nurse. [facility] Primary Care [address] [place] [address] [facility] [address] [place] [address] Thank you for choosing the [facility] emergency department in [place] for your medical needs today. It was a pleasure caring for you. Today you were seen in the emergency department for laceration care. 1. Keep the area clean and dry. Continue to monitor for signs of infection. Sutures to be removed in 7-10 days. 2. Tylenol and/or ibuprofen as needed for pain management. 3. Please follow-up with your primary care provider in the next 1-2 days. Return to the ED as needed and as discussed. Sepsis Event Note (ED) - Evaluation Sepsis Screening Result: No Definite Risk - Focused Exam Vital Signs: Vital Signs Temp Pulse Resp BP Pulse Ox 10/03/20 14:31 123/70 10/03/20 14:24 98.3 F 102 H 18 97
[2020-10-03 15:58] VITALS: BP 119/70; PULSE 104
== END 2020-10-03 15:33 | disposition home or self-care (01) ==
LOC: MW.ED 13:58
DX: S46.221A Laceration of muscle, fascia and tendon of other parts of biceps, right arm, initial encounter (principal); I10 Essential (primary) hypertension; W26.8XXA Contact with other sharp object(s), not elsewhere classified, initial encounter
CPT/HCPCS: 12002; 99282; 99282-25

== ENCOUNTER 2023-01-21 16:19 | Emergency (ER) | payer BC ==
[2023-01-21] MEDS ORDERED: HYDROmorphone 1 MG/ML Syringe IM ONE (17:53)
[2023-01-21] MEDS ORDERED: Naloxone 0.4 MG/ML SDV IVPUSH PRN (17:53)
[2023-01-21 18:24] VITALS: BP 145/87; PULSE 87
== END 2023-01-21 18:19 | disposition home or self-care (01) ==
LOC: MW.ED 16:19
DX: M54.50 Low back pain, unspecified (principal); I10 Essential (primary) hypertension; Z79.899 Other long term (current) drug therapy
CPT/HCPCS: 96372; 99283; J1170; 99284

== ENCOUNTER 2023-02-19 23:14 | Emergency (ER) | payer SELFPAY ==
[2023-02-19] MEDS ORDERED: Haloperidol Lactate 5 MG/ML SDV IM ONE (23:53)
[2023-02-20 00:02] LABS: BASE EXCESS VENOUS 3.3 (-2.0-3.0); BICARBONATE,VENOUS 29 mEq/L (23-28); PCO2 VENOUS 49 mmHG (41-51); PH,VENOUS 7.39 (7.31-7.41); PO2 VENOUS < 30 mmHG
[2023-02-20 00:06] LABS: BASOPHILS ABSOLUTE AUTO 0.07 K/uL (0.00-0.20); EOSINOPHILS ABSOLUTE AUTO 0.06 K/uL (0.00-0.45); EOSINOPHILS PERCENT AUTO 0.9 % (0.0-6.0); HEMATOCRIT 43.6 % (42.0-52.0); HEMOGLOBIN 14.9 g/dL (14.0-18.0); IMMATURE GRAN ABSOLUTE AUTO 0.06 K/uL (0.00-0.05); IMMATURE GRAN PERCENT AUTO 0.9 % (0.0-0.4); LYMPHOCYTES ABSOLUTE AUTO 1.47 K/uL (1.00-4.80); LYMPHOCYTES PERCENT AUTO 21.2 % (24.0-44.0); MEAN CORPUSCULAR HEMOGLOBIN 29.9 pg (28.0-32.0); MEAN CORPUSCULAR HGB CONC 34.2 g/dL (32.0-36.0); MEAN CORPUSCULAR VOLUME 87.4 fL (83.0-99.0); MEAN PLATELET VOLUME 8.9 fL (9.4-12.4); MONOCYTES ABSOLUTE AUTO 0.66 K/uL (0.00-0.80); MONOCYTES PERCENT AUTO 9.5 % (0.0-8.0); NEUTROPHILS ABSOLUTE AUTO 4.63 K/uL (1.80-7.70); NEUTROPHILS PERCENT AUTO 66.5 % (41.0-71.0); PLATELET COUNT,PLT 152 K/uL (150-400); RED BLOOD CELL COUNT 4.99 M/uL (4.52-5.90); WHITE BLOOD CELL COUNT,WBC 6.95 K/uL (3.9-11.3)
[2023-02-20] MEDS ORDERED: Naloxone 0.4 MG/ML SDV IVPUSH PRN (00:10)
[2023-02-20] MEDS ORDERED: Morphine 10 MG/ML SDV IVPUSH ONE (00:10)
[2023-02-20 00:28] LABS: A/G RATIO 1.2 (0.9-1.6); ACETAMINOPHEN <2.0 ug/mL; ALANINE AMINOTRANSFERASE,ALT 42 IU/L (14-63); ALBUMIN 3.4 g/dL (3.4-5.0); ALKALINE PHOSPHATASE 33 U/L (46-116); ASPARTATE AMNIOTRANSFERASE,AST 74 IU/L (15-37); BILIRUBIN TOTAL 0.6 mg/dL (0.2-1.0); BLOOD UREA NITROGEN,BUN 15 mg/dL (7.0-18.0); CALCIUM 8.4 mg/dL (8.5-10.1); CHLORIDE,CL 105 mmol/L (98-107); CREATININE 0.8 mg/dL (0.8-1.3); EST CRCL DRUG DOSING (CG) 112.96 mL/min; GLUCOSE RANDOM 87 mg/dL (74-106); POTASSIUM,K 3.5 mmol/L (3.5-5.1); PROTEIN TOTAL,TP 6.2 g/dL (6.4-8.2); SALICYLATE 3.5 mg/dL (0.0-20.0); SODIUM,NA 142 mmol/L (136-148)
[2023-02-20] MEDS ORDERED: Dextrose 5%-Lactated Ringers 1,000 ML IV SCH (00:30)
[2023-02-20 00:32] LABS: ESTIMATED GFR 99 mL/min (>60); ETHANOL BLOOD MEDICAL 403 mg/dL
[2023-02-20] MEDS ORDERED: Morphine 4 MG/ML Syringe IVPUSH ONE (05:30)
[2023-02-20 08:34] VITALS: BP 108/62; PULSE 72
== END 2023-02-20 08:35 | disposition home or self-care (01) ==
LOC: MW.ED 23:14
DX: T40.2X1A Poisoning by other opioids, accidental (unintentional), initial encounter (principal); F10.929 Alcohol use, unspecified with intoxication, unspecified; M54.9 Dorsalgia, unspecified; I10 Essential (primary) hypertension; F17.210 Nicotine dependence, cigarettes, uncomplicated
CPT/HCPCS: 36415; 70450; 80053; 80143; 80179; 80307; 82803; 82947; 84484; 85025; 93005; 96372; 96374; 99285; J1630; J2270; J7121; 93010; 99284